=== PATIENT | female | born 1995 | race Caucasian/White ===

== ENCOUNTER → 2019-04-05 20:01 | Emergency (ER) | payer OTHER ==
--- NOTE | 2019-04-05 23:10 | ED ---
GI/ HPI - HPI Summary HPI Summary: 24 year old female presents with left inguinal area. She states that she developed pain there today. No fevers or chills. No nausea and no vomiting. No abdominal pain. No dysuria. No abnormal vaginal discharge. No rash. On exam tenderness in left inguinal area with mobile masses felt. mass felt that is half centimeter that is mobile. No signs of rash. Told to follow with primary to make sure resolved. Patient understands agrees plan. - History of Current Complaint Chief Complaint: EDRashSkinAbscess Time Seen by Provider: 04/05/19 22:50 Stated Complaint: BUMP AROUND GROIN PER PT Pain Intensity: 6 - Allergy/Home Medications Allergies/Adverse Reactions: Allergies Allergy/AdvReac Type Severity Reaction Status Date / Time No Known Allergies Allergy Verified 04/05/19 22:56 PMH/Surg Hx/FS Hx/Imm Hx Endocrine/Hematology History: Denies: Hx Diabetes Cardiovascular History: Denies: Hx Hypertension, Hx Pacemaker/ICD Respiratory History: Denies: Hx Asthma History: Denies: Hx Renal Disease Musculoskeletal History: Reports: Hx Back Problems - back radiating down right leg Sensory History: Reports: Hx Contacts or Glasses Denies: Hx Hearing Aid Opthamlomology History: Reports: Hx Contacts or Glasses Neurological History: Reports: Other Neuro Impairments/Disorders - PAIN CLINIC PT Psychiatric History: Denies: Hx Panic Disorder - Surgical History Surgery Procedure, Year, and Place: WISDOM TEETH 2016. LUMBAR DISCECTOMY 2017 Infectious Disease History: No Infectious Disease History: Denies: Traveled Outside the [place] in Last 30 Days - Family History Known Family History: Positive: Non-Contributory - Social History Alcohol Use: Weekly Substance Use Type: Reports: None Smoking Status (MU): Never Smoked Tobacco Review of Systems Negative: Fever Negative: Chest Pain Negative: Shortness Of Breath Positive: Other - tender left inguinal area All Other Systems Reviewed And Are Negative: Yes Physical Exam Triage Information Reviewed: Yes Vital Signs On Initial Exam: Initial Vitals Temp Pulse Resp BP Pulse Ox 98.7 F 75 18 141/96 100 04/05/19 20:15 04/05/19 20:15 04/05/19 20:15 04/05/19 20:15 04/05/19 20:15 Vital Signs Reviewed: Yes Appearance: Positive: Well-Appearing Skin: Positive: Warm, Dry Head/Face: Positive: Normal Head/Face Inspection Eyes: Positive: Normal, Conjunctiva Clear ENT: Positive: Pharynx normal Respiratory/Lung Sounds: Positive: Clear to Auscultation, Breath Sounds Present Cardiovascular: Positive: Normal, RRR Abdomen Description: Positive: Nontender, Soft, Other: - tender inguinal lymph node: mobile nodule that is 1/2cm big in left inguinal area Bowel Sounds: Positive: Present Musculoskeletal: Positive: Normal Neurological: Positive: Normal Psychiatric: Positive: Normal Diagnostics - Vital Signs Vital Signs Temp Pulse Resp BP Pulse Ox 04/05/19 20:15 98.7 F 75 18 141/96 100 - Laboratory Lab Statement: Any lab studies that have been ordered have been reviewed, and results considered in the medical decision making process. GIGU Course/Dx - Course Course Of Treatment: 24 year old female presents with left inguinal area. She states that she developed pain there today. No fevers or chills. No nausea and no vomiting. No abdominal pain. No dysuria. No abnormal vaginal discharge. No rash. On exam tenderness in left inguinal area with mobile masses felt. mass felt that is half centimeter that is mobile. No signs of rash. Told to follow with primary to make sure resolved. Patient understands agrees plan. - Diagnoses Differential Diagnoses - Female: Other - hernia, abscess, enlarged lymph node Provider Diagnoses: Lymph nodes enlarged Discharge - Sign-Out/Discharge Documenting (check all that apply): Patient Departure Patient Received Moderate/Deep Sedation with Procedure: No - Discharge Plan Condition: Good Disposition: HOME Patient Education Materials: Lymphadenopathy (ED) Referrals: Oliver Milton [Primary Care Provider] - Additional Instructions: take Tylenol or ibuprofen every 6 hours as needed for pain Follow up with primary to make sure resolve Return to ED if develop rash, fever or any new or worsening symptoms - Billing Disposition and Condition Condition: GOOD Disposition: Home
[2019-04-05 23:16] VITALS: BP 138/87
== END | disposition home or self-care (01) ==
LOC: ED 20:01
DX: R59.0 Localized enlarged lymph nodes (principal)
CPT/HCPCS: 99282